=== PATIENT | male | born 1970 | race American Indian/Alaskan Native ===

== ENCOUNTER 2016-11-06 04:19 | Emergency (ER) | payer OTHER ==
[2016-11-06 04:27] VITALS: BMI 29.2
--- NOTE | 2016-11-06 04:48 | ED PDOC ---
Arrival/HPI - General Historian: Patient - History of Present Illness Time/Duration: Other (tonight) Symptom Onset: Gradual Symptom Course: Unchanged Activities at Onset: Rest, Light Context: Home - General Chief Complaint: Flu-like Symptoms Time Seen by Provider: 11/06/16 04:38 - History of Present Illness Narrative History of Present Illness (Text): 11/06/16 04:45 John Wheatley is a 46 year old female, whose past medical history includes hypertension, hyperlipidemia, WPW, chronic neck pain, anxiety, and insomnia, who presents to the Emergency department complaining of a migraine headache today. Patient also complaining of associated nausea, vomiting, diarrhea, chills , and generalized body aches. Patient notes decreased PO intake secondary to vomiting. Patient denies any fever, chest pain, shortness of breath, urinary symptoms, back pain, neck pain, focal neurological deficits, vision changes, dizziness, or any other complaints. Patient notes his granddaughter was ill with similar symptoms recently. (Eduardo Cosby) Past Medical History - Provider Review Nursing Documentation Reviewed: Yes - Infectious Disease Hx of Infectious Diseases: None - Tetanus Immunization Tetanus Immunization: Unknown - Past Medical History Past Medical History: No Previous - Cardiac Hx Hypertension: Yes - Pulmonary Hx Respiratory Disorders: Yes (SMOKES CIGARETTES 1/2 PPD) - Neurological Hx Neurological Disorder: Yes (NEUROPATHY) Hx Parkinson's Disease: Yes (RONIT PARKINSON WHITE SYNDROME) - HEENT Hx HEENT Disorder: No - Renal Hx Renal Disorder: No - Endocrine/Metabolic Hx Endocrine Disorders: No - Hematological/Oncological Hx Blood Disorders: No - Integumentary Hx Dermatological Disorder: No - Musculoskeletal/Rheumatological Hx Back Pain: Yes Other/Comment: shoulder pain - Gastrointestinal Hx Gastrointestinal Disorders: No - Genitourinary/Gynecological Hx Genitourinary Disorders: No - Psychiatric Hx Depression: No Hx Emotional Abuse: No Hx Physical Abuse: No Hx Substance Use: No - Past Surgical History Past Surgical History: Non-Contributing - Surgical History Other/Comment: coronary artery stents - Suicidal Assessment Feels Threatened In Home Enviroment: No Family/Social History - Physician Review Nursing Documentation Reviewed: Yes Family/Social History: No Known Family HX Smoking Status: Heavy Smoker > 10 Cigarettes Daily Hx Alcohol Use: No Hx Substance Use: No Hx Substance Use Treatment: Yes Allergies/Home Meds Allergies/Adverse Reactions: Allergies No Known Allergies Allergy (Verified 08/12/16 17:28) Home Medications: Home Meds Medication Instructions Recorded Confirmed ALPRAZolam [Xanax] 0.25 mg PO TID PRN 11/06/16 11/06/16 Aspirin [Ecotrin] 81 mg PO DAILY 11/06/16 11/06/16 Atorvastatin Calcium 40 mg PO DAILY 11/06/16 11/06/16 Ergocalciferol (Vitamin D2) 50,000 unit PO .2XWEEK 11/06/16 11/06/16 [Vitamin D2] Folic Acid 1 mg PO DAILY 11/06/16 11/06/16 Gabapentin [Neurontin] 300 mg PO TID 11/06/16 11/06/16 Losartan Potassium [Cozaar] 100 mg PO DAILY 11/06/16 11/06/16 Pantoprazole [Protonix] 40 mg PO DAILY 11/06/16 11/06/16 traMADol [Ultram] 50 mg PO TID PRN 11/06/16 11/06/16 traZODone [trazodone Hydrochloride] 100 mg PO HS 11/06/16 11/06/16 Review of Systems - Physician Review All systems were reviewed & negative as marked: Yes - Review of Systems Constitutional: Other (+chills). absent: Fevers Eyes: Normal ENT: Normal Respiratory: Normal. absent: SOB, Cough Cardiovascular: Normal. absent: Chest Pain Gastrointestinal: Diarrhea, Nausea, Vomiting. absent: Abdominal Pain Genitourinary Male: Normal. absent: Dysuria, Frequency, Hematuria, Urinary Output Changes Musculoskeletal: Myalgias (+generalized body aches). absent: Back Pain, Neck Pain Skin: Normal Neurological: Headache Endocrine: Normal Hemo/Lymphatic: Normal Psychiatric: Normal Physical Exam Vital Signs Reviewed: Yes Temperature: Afebrile Blood Pressure: Normal Pulse: Regular Respiratory Rate: Normal Appearance: Positive for: Well-Appearing, Non-Toxic, Comfortable Pain Distress: None Mental Status: Positive for: Alert and Oriented X 3 - Systems Exam Head: Present: Atraumatic, Normocephalic Pupils: Present: PERRL Extroacular Muscles: Present: EOMI Conjunctiva: Present: Normal Ears: Present: NORMAL TM Mouth: Present: Moist Mucous Membranes Pharnyx: Present: Normal Neck: Present: Normal Range of Motion. No: Meningeal Signs Respiratory/Chest: Present: Clear to Auscultation, Good Air Exchange. No: Respiratory Distress, Accessory Muscle Use Cardiovascular: Present: Regular Rate and Rhythm, Normal S1, S2. No: Murmurs Abdomen: Present: Normal Bowel Sounds. No: Tenderness, Distention, Peritoneal Signs Back: Present: Normal Inspection Upper Extremity: Present: Normal Inspection. No: Cyanosis, Edema Lower Extremity: Present: Normal Inspection. No: Edema Neurological: Present: GCS=15, CN II-XII Intact, Speech Normal, Motor Func Grossly Intact, Normal Sensory Function Skin: Present: Warm, Dry, Normal Color. No: Rashes Psychiatric: Present: Alert, Oriented x 3, Normal Insight, Normal Concentration Vital Signs Temp Pulse Resp BP Pulse Ox 11/06/16 09:38 63 18 141/84 98 11/06/16 07:40 98.7 F 67 16 158/99 H 98 11/06/16 06:04 62 17 135/72 98 11/06/16 04:48 98.9 F 68 17 146/91 H 100 Medical Decision Making ED Course and Treatment: 11/06/16 04:45 Impression: 46 year old male complaining of headache, nausea, vomiting, diarrhea, chills, and generalized body aches tonight. Plan: -- Labs, lipase -- Rapid influenza -- IV fluids -- Benadryl -- Reglan -- Reassess and disposition Prior Visits: Notes and results from previous visits were reviewed. Progress Notes: (Eduardo Cosby) - Lab Interpretations Lab Results: 11/06/16 05:15 11/06/16 05:15 Lab Results 11/06/16 05:15: WBC 9.0, RBC 3.99, Hgb 12.5 L, Hct 35.6 L, MCV 89.2, MCH 31.3, MCHC 35.1, RDW 13.6, Plt Count 193, MPV 11.3 H, Sodium 139, Potassium 3.6, Chloride 102, Carbon Dioxide 30, Anion Gap 11, BUN 10, Creatinine 1.1, Est GFR ( Amer) > 60, Est GFR (Non-Af Amer) > 60, Random Glucose 94, Calcium 8.7, Total Bilirubin 0.7, AST 48, ALT 47, Alkaline Phosphatase 83, Total Protein 7.1 , Albumin 3.9, Globulin 3.3, Albumin/Globulin Ratio 1.2, Lipase 37, Influenza Typ A,B (EIA) Negative for flu a/b - Medication Orders Current Medication Orders: Discontinued Medications Diphenhydramine HCl (Benadryl) 25 mg IVP ONCE ONE Stop: 11/06/16 04:53 Last Admin: 11/06/16 05:17 Dose: 25 MG IVP Administration Document 11/06/16 05:17 RD (Rec: 11/06/16 05:17 RD [id number]) Charges for Administration # of IVP Administrations 1 Sodium Chloride (Sodium Chloride 0.9%) 1,000 mls @ 999 mls/hr IV .Q1H1M STA Stop: 11/06/16 05:52 Last Admin: 11/06/16 05:17 Dose: 999 MLS/HR eMAR Start Stop Document 11/06/16 05:17 RD (Rec: 11/06/16 05:17 RD [id number]) Intravenous Solution Start Date 11/06/16 Start Time 05:17 End Date 11/06/16 End time 06:17 Total Infusion Time 60 Ketorolac Tromethamine (Toradol) 30 mg IVP ONCE ONE Stop: 11/06/16 07:16 Last Admin: 11/06/16 07:32 Dose: 30 MG IVP Administration Document 11/06/16 07:32 SS (Rec: 11/06/16 07:36 SS [id number]) Charges for Administration # of IVP Administrations 1 Metoclopramide HCl (Reglan) 10 mg IVP ONCE ONE Stop: 11/06/16 04:53 Last Admin: 11/06/16 05:17 Dose: 10 MG IVP Administration Document 11/06/16 05:17 RD (Rec: 11/06/16 05:17 RD [id number]) Charges for Administration # of IVP Administrations 1 ED OBSERVATION Date of observation admission: 11/06/16 Time of observation admission: 05:10 - Observation admission statement Patient is being placed in observation because:: migraine headache/generalized malaise (Eduardo Cosby) - Goals of Observation Goals of observation are:: treatment of headache/observe for response to treatment (Eduardo Cosby) - Progress Note Progress Note: 11/06/16 07:33 Patient signed out to me by . On evaluation patient is complaining of a headache. Toradol ordered by for headache. (Luis Manuel Stiles) 11/06/16 07:01 Case endorsed to .Awaiting response to treatment/reassess/final disposition (Eduardo Cosby) - Scribe Statement The provider has reviewed the documentation as recorded by the Scribe - Scribe Statement Lexy Bowen (Eduardo Cosby) Provider Attestation: All medical record entries made by the Scribe were at my direction and personally dictated by me. I have reviewed the chart and agree that the record accurately reflects my personal performance of the history, physical exam, medical decision making, and the department course for this patient. I have also personally directed, reviewed, and agree with the discharge instructions and disposition. (Eduardo Cosby) Disposition/Present on Arrival - Present on Arrival Any Indicators Present on Arrival: No History of DVT/PE: No History of Uncontrolled Diabetes: No Urinary Catheter: No History of Decub. Ulcer: No History Surgical Site Infection Following: None - Disposition Have Diagnosis and Disposition been Completed?: No Disposition Time: 07:00 - Disposition Diagnosis: Headache Disposition: HOME/ ROUTINE Condition: IMPROVED Discharge Instructions (ExitCare): Acute Headache (DC) Additional Instructions: Mr Wheatley, thank you for letting us take care of you today. Your provider was Dr. Stiles. You were treated for Headache. The emergency medical care you received today was directed at your acute symptoms. If you were prescribed any medication, please fill it and take as directed. It may take several days for your symptoms to resolve. Return to the Emergency Department if your symptoms worsen, do not improve, or if you have any other problems. Please contact your doctor or call one of the physicians/clinics you have been referred to that are listed on the Patient Visit Information form that is included in your discharge packet. Bring any paperwork you were given at discharge with you along with any medications you are taking to your follow up visit. Our treatment cannot replace ongoing medical care by a primary care provider (PCP) outside of the emergency department. Thank you for allowing the [facility] team to be part of your care today. If you had an X-Ray or CT scan: A Radiologist will review the ED reading if any change in treatment is needed we will contact you. If you had a blood, urine, or wound culture: It will take several days for the results, if any change in treatment is needed we will contact you. If you had an STI test: It will take 48 hours for the results. Please call after 1 week if you have not heard back. Prescriptions: guaiFENesin [guaifENESIN] 200 mg PO Q8 PRN #1 bottle PRN Reason: Cough Referrals: Raphael Smith MD [Primary Care Provider] - Follow up with primary Forms: WORK NOTE
[2016-11-06] MEDS ORDERED: DiphenhydrAMINE 50 mg/ml Inj IVP ONE (04:52)
[2016-11-06] MEDS ORDERED: Sodium Chloride 0.9% 1,000 ML IV STA (04:52)
[2016-11-06 05:28] LABS: HEMATOCRIT 35.6 % (42.0-52.0); MEAN CELL VOLUME 89.2 fL (80.0-105.0); MEAN CORPUSCULAR HEMOGLOBIN 31.3 pg (25.0-35.0); MEAN CORPUSCULAR HGB CONC 35.1 g/dl (31.0-37.0); MEAN PLATELET VOLUME 11.3 fl (7.0-11.0); RED CELL DISTRIBUTION WIDTH 13.6 % (11.5-14.5)
[2016-11-06 05:35] LABS: ALB/GLOB RATIO 1.2 (1.1-1.8); ALKALINE PHOSPHATASE 83 U/L (38-133); ALT/SGPT 47 U/L (7-56); AST/SGOT 48 U/L (15-59); BILIRUBIN,TOTAL 0.7 mg/dL (0.2-1.3); BLOOD UREA NITROGEN 10 mg/dL (7-21); CALCIUM 8.7 mg/dL (8.4-10.5); CARBON DIOXIDE 30 mmol/L (21-33); CHLORIDE 102 mmol/L (98-107); GFR AFRICAN-AMERICAN > 60; GLUCOSE,RANDOM 94 mg/dL (70-110); LIPASE 37 U/L (23-300); POTASSIUM 3.6 mmol/L (3.6-5.0); SODIUM 139 mmol/L (132-148); TOTAL PROTEIN 7.1 g/dL (5.8-8.3)
[2016-11-06 06:05] VITALS: O2SAT 98
[2016-11-06 07:41] VITALS: TEMP 98.7
[2016-11-06 09:39] VITALS: BP 141/84; PULSE 63; RESP 18
== END 2016-11-06 09:43 | disposition home or self-care (01) ==
LOC: ED 04:19
DX: R51 Headache (principal)
CPT/HCPCS: 80053; 83690; 85027; 87804; 96361; 96374; 96375; 99285; J1200; J1885; J2765; J7040

== ENCOUNTER 2017-01-23 11:28 | Emergency (ER) | payer OTHER ==
[2017-01-23 11:28] VITALS: BMI 29.2
[2017-01-23 11:47] VITALS: TEMP 98.1
[2017-01-23] MEDS ORDERED: Sodium Chloride 0.9% 1,000 ML IV STA (12:00)
[2017-01-23 12:06] VITALS: RESP 16; O2SAT 100
[2017-01-23 13:13] LABS: ADD MANUAL DIFF? NO
[2017-01-23 13:17] LABS: BASO # 0.02 K/mm3 (0.0-2.0); BASO % 0.3 % (0.0-3.0); EOS # 0.1 (0.0-0.7); EOS % 1.7 % (1.5-5.0); GRAN # 4.48 (1.4-6.5); GRAN % 62.2 % (50.0-68.0); HEMATOCRIT 35.9 % (42.0-52.0); LYMPH % 28.4 % (22.0-35.0); MEAN CELL VOLUME 87.1 fL (80.0-105.0); MEAN CORPUSCULAR HEMOGLOBIN 30.1 pg (25.0-35.0); MEAN CORPUSCULAR HGB CONC 34.5 g/dl (31.0-37.0); MEAN PLATELET VOLUME 10.8 fl (7.0-11.0); MONO # 0.5 (0.1-0.6); MONO % 7.4 % (1.0-6.0); PLATELET COUNT 224 10^3/uL (120.0-450.0); RED CELL DISTRIBUTION WIDTH 13.8 % (11.5-14.5); WHITE BLOOD COUNT 7.2 10^3/ul (4.5-11.0)
[2017-01-23 13:27] LABS: ALB/GLOB RATIO 1.4 (1.1-1.8); ALKALINE PHOSPHATASE 73 U/L (38-133); ALT/SGPT 40 U/L (7-56); AST/SGOT 39 U/L (15-59); BILIRUBIN,TOTAL 0.7 mg/dL (0.2-1.3); BLOOD UREA NITROGEN 16 mg/dL (7-21); CALCIUM 9.3 mg/dL (8.4-10.5); CARBON DIOXIDE 28 mmol/L (21-33); CHLORIDE 101 mmol/L (98-107); GFR AFRICAN-AMERICAN > 60; GLUCOSE,RANDOM 82 mg/dL (70-110); LIPASE 77 U/L (23-300); POTASSIUM 4.1 mmol/L (3.6-5.0); SODIUM 137 mmol/L (132-148); TOTAL PROTEIN 7.1 g/dL (5.8-8.3)
[2017-01-23 13:29] LABS: INR 1.11 (0.93-1.08); PARTIAL THROMBOPLASTIN TIME 27.9 Seconds (23.7-30.8)
--- NOTE | 2017-01-23 13:36 | ED PDOC ---
Arrival/HPI - General Chief Complaint: GI Problem Time Seen by Provider: 01/23/17 11:52 Historian: Patient - History of Present Illness Narrative History of Present Illness (Text): 01/23/17 13:29 46yo male with PMHx of hypertension, diabetes, hyperlipdemia, GERD, present with complaint nausea and vomiting x 2 since this morning. Reports blood tinged vomitus the second time. He notes history of alcohol intake. States the last time he drank was few days ago. Denies abdominal pain, diarrhea, constipation, fever, chills, chest pain, SOB, any other complaint. Past Medical History - Provider Review Nursing Documentation Reviewed: Yes - Infectious Disease Hx of Infectious Diseases: None - Tetanus Immunization Tetanus Immunization: Unknown - Past Medical History Past Medical History: No Previous - Cardiac Hx Cardiac Arrhythmia: Yes Hx Hypertension: Yes - Pulmonary Hx Respiratory Disorders: Yes (SMOKES CIGARETTES 1/2 PPD) - Neurological Hx Neurological Disorder: Yes (NEUROPATHY) - HEENT Hx HEENT Disorder: No - Renal Hx Renal Disorder: No - Endocrine/Metabolic Hx Endocrine Disorders: No - Hematological/Oncological Hx Blood Disorders: No - Integumentary Hx Dermatological Disorder: No - Musculoskeletal/Rheumatological Hx Back Pain: Yes Other/Comment: shoulder pain - Gastrointestinal Hx Gastrointestinal Disorders: No - Genitourinary/Gynecological Hx Genitourinary Disorders: No - Psychiatric Hx Anxiety: Yes Hx Depression: No Hx Emotional Abuse: No Hx Physical Abuse: No Hx Substance Use: No - Past Surgical History Past Surgical History: Non-Contributing - Surgical History Other/Comment: CARDIAC CATH - Anesthesia Hx Anesthesia: Yes - Suicidal Assessment Feels Threatened In Home Enviroment: No Family/Social History - Physician Review Nursing Documentation Reviewed: Yes Family/Social History: Unknown Family HX Smoking Status: Heavy Smoker > 10 Cigarettes Daily Hx Alcohol Use: No Hx Substance Use: No Hx Substance Use Treatment: Yes Allergies/Home Meds Allergies/Adverse Reactions: Allergies No Known Allergies Allergy (Verified 01/23/17 11:40) Home Medications: Home Meds Medication Instructions Recorded Confirmed ALPRAZolam [Xanax] 0.25 mg PO TID PRN 11/06/16 01/23/17 Aspirin [Ecotrin] 81 mg PO DAILY 11/06/16 01/23/17 Atorvastatin Calcium 40 mg PO DAILY 11/06/16 01/23/17 Ergocalciferol (Vitamin D2) 50,000 unit PO .2XWEEK 11/06/16 01/23/17 [Vitamin D2] Folic Acid 1 mg PO DAILY 11/06/16 01/23/17 Gabapentin [Neurontin] 300 mg PO TID 11/06/16 01/23/17 Losartan Potassium [Cozaar] 100 mg PO DAILY 11/06/16 01/23/17 Pantoprazole [Protonix] 40 mg PO DAILY 11/06/16 01/23/17 traMADol [Ultram] 50 mg PO TID PRN 11/06/16 01/23/17 traZODone [trazodone Hydrochloride] 100 mg PO HS 11/06/16 01/23/17 Review of Systems - Physician Review All systems were reviewed & negative as marked: Yes - Review of Systems Constitutional: Normal Eyes: Normal ENT: Normal Respiratory: Normal Cardiovascular: Normal Gastrointestinal: Nausea, Vomiting, Hematemesis. absent: Abdominal Pain, Constipation, Diarrhea, Hematochezia Genitourinary Male: Normal Musculoskeletal: Normal Skin: Normal Neurological: Normal Endocrine: Normal Hemo/Lymphatic: Normal Psychiatric: Normal Physical Exam Vital Signs Reviewed: Yes Vital Signs Temp Pulse Resp BP Pulse Ox 01/23/17 14:35 71 16 127/85 100 01/23/17 12:05 98.1 F 68 16 122/87 100 01/23/17 11:41 98.1 F 77 17 136/71 99 Temperature: Afebrile Blood Pressure: Normal Pulse: Regular Respiratory Rate: Normal Appearance: Positive for: Well-Appearing, Non-Toxic, Comfortable Pain Distress: None Mental Status: Positive for: Alert and Oriented X 3 - Systems Exam Head: Present: Atraumatic, Normocephalic Pupils: Present: PERRL Extroacular Muscles: Present: EOMI Conjunctiva: Present: Normal Mouth: Present: Moist Mucous Membranes Neck: Present: Normal Range of Motion Respiratory/Chest: Present: Clear to Auscultation, Good Air Exchange. No: Respiratory Distress, Accessory Muscle Use Cardiovascular: Present: Regular Rate and Rhythm, Normal S1, S2. No: Murmurs Abdomen: Present: Normal Bowel Sounds, Other (Soft). No: Tenderness, Distention , Peritoneal Signs, Rebound, Guarding, McBurney's Point Tender, Rovsing's Sign Present Back: Present: Normal Inspection Upper Extremity: Present: Normal Inspection. No: Cyanosis, Edema Lower Extremity: Present: Normal Inspection. No: Edema Neurological: Present: GCS=15, CN II-XII Intact, Speech Normal Skin: Present: Warm, Dry, Normal Color. No: Rashes Psychiatric: Present: Alert, Oriented x 3, Normal Insight, Normal Concentration Medical Decision Making ED Course and Treatment: 01/23/17 14:14 46yo male who presented for stated history. His abdominal exam was benign. Lab was unremarkable. PT have h/o GERD. Result was DW the pt. Case was also with pt' s PMD. Pt is noncompliant with his medications. He also don't see his PMD. He was strongly advised to f/u with his PMD. He states he plan to go to the PMD straight from the ED. Dr. Smith's office was notified that pt is on his way - Lab Interpretations Lab Results: 01/23/17 13:00 01/23/17 13:00 Lab Results 01/23/17 13:00: Sodium 137, Potassium 4.1, Chloride 101, Carbon Dioxide 28, Anion Gap 12, BUN 16, Creatinine 1.3, Est GFR ( Amer) > 60, Est GFR (Non- Af Amer) 59, Random Glucose 82, Calcium 9.3, Total Bilirubin 0.7, AST 39, ALT 40 , Alkaline Phosphatase 73, Total Protein 7.1, Albumin 4.2, Globulin 2.9, Albumin /Globulin Ratio 1.4, Lipase 77 01/23/17 13:00: PT 12.0 H, INR 1.11 H, APTT 27.9 01/23/17 13:00: WBC 7.2, RBC 4.12, Hgb 12.4 L, Hct 35.9 L, MCV 87.1, MCH 30.1, MCHC 34.5, RDW 13.8, Plt Count 224, MPV 10.8, Gran % 62.2, Lymph % (Auto) 28.4, Sutter % (Auto) 7.4 H, Eos % (Auto) 1.7, Baso % (Auto) 0.3, Gran # 4.48, Lymph # 2.0, Sutter # 0.5, Eos # 0.1, Baso # 0.02 - Medication Orders Current Medication Orders: Discontinued Medications Sodium Chloride (Sodium Chloride 0.9%) 1,000 mls @ 1,000 mls/hr IV .Q1H STA Stop: 01/23/17 12:59 Last Admin: 01/23/17 12:46 Dose: 1,000 mls/hr Ondansetron HCl (Zofran Inj) 4 mg IVP STAT STA Stop: 01/23/17 12:01 Last Admin: 01/23/17 12:39 Dose: 4 mg Pantoprazole Sodium (Protonix Inj) 40 mg IVP STAT STA Stop: 01/23/17 12:01 Last Admin: 01/23/17 12:39 Dose: 40 mg Disposition/Present on Arrival - Present on Arrival Any Indicators Present on Arrival: No History of DVT/PE: No History of Uncontrolled Diabetes: No Urinary Catheter: No History of Decub. Ulcer: No History Surgical Site Infection Following: None - Disposition Have Diagnosis and Disposition been Completed?: Yes Diagnosis: Vomiting Disposition: HOME/ ROUTINE Disposition Time: 13:55 Patient Plan: Discharge Condition: STABLE Discharge Instructions (ExitCare): Acute Nausea and Vomiting (ED) Additional Instructions: Follow up with your doctor/GI Return to ED for any new symptoms Referrals: Raphael Smith MD [Primary Care Provider] - Follow up with primary
[2017-01-23 14:36] VITALS: BP 127/85; PULSE 71
== END 2017-01-23 14:15 | disposition home or self-care (01) ==
LOC: ED 11:28
DX: R11.10 Vomiting, unspecified (principal); I10 Essential (primary) hypertension; E11.9 Type 2 diabetes mellitus without complications
CPT/HCPCS: 80053; 83690; 85025; 85610; 85730; 96361; 96374; 96375; 99283; C9113; J2405; J7040

== ENCOUNTER 2017-06-21 13:50 | Emergency (ER) | payer OTHER ==
[2017-06-21 13:58] VITALS: TEMP 97.5; BMI 27.1
--- NOTE | 2017-06-21 15:34 | RAD ---
PROCEDURE: Right Knee Radiographs. HISTORY: knee pain COMPARISON: None. FINDINGS: BONES: Normal. No fracture. JOINTS: Normal. No osteoarthritis. JOINT EFFUSION: None. Small OTHER FINDINGS: None. IMPRESSION: Small joint effusion. Otherwise unremarkable.
[2017-06-21] MEDS ORDERED: Oxycodone/Acetaminophen 5/325 mg Tab PO STA (16:26)
[2017-06-21 16:52] LABS: FLUID TYPE SYNOVIAL FLUID
--- NOTE | 2017-06-21 17:05 | ED PDOC ---
Arrival/HPI - General Chief Complaint: Lower Extremity Problem/Injury Time Seen by Provider: 06/21/17 14:05 Historian: Patient - History of Present Illness Narrative History of Present Illness (Text): 06/21/17 18:27 46 y/o male complains of right knee pain for one week. States pain is worse with flexion of the knee. Pain and swelling has gotten worse the past 4 days. States he went to his PCP today who sent him to the ER for joint aspiration. pt denies trauma, fall, fever, numbness or weakness of lower extremity. Denies hx of gout. States he's been taking Tramadol with no relief of pain. Past Medical History - Provider Review Nursing Documentation Reviewed: Yes - Travel History Have you recently traveled outside [place] w/in the past 3 mons?: No - Past History Past History: Non-Contributing - Infectious Disease Hx of Infectious Diseases: None - Tetanus Immunization Tetanus Immunization: Unknown - Reproductive Currently : No - Past Medical History Past Medical History: No Previous - Cardiac Hx Cardiac Arrhythmia: Yes Hx Hypertension: Yes Other/Comment: WPW - Pulmonary Hx Respiratory Disorders: Yes (SMOKES CIGARETTES 1/2 PPD) - Neurological Hx Neurological Disorder: Yes (NEUROPATHY) - HEENT Hx HEENT Disorder: No - Renal Hx Renal Disorder: No - Endocrine/Metabolic Hx Endocrine Disorders: No - Hematological/Oncological Hx Blood Disorders: No - Integumentary Hx Dermatological Disorder: No - Musculoskeletal/Rheumatological Hx Back Pain: Yes Other/Comment: shoulder pain - Gastrointestinal Hx Gastrointestinal Disorders: No - Genitourinary/Gynecological Hx Genitourinary Disorders: No - Psychiatric Hx Anxiety: Yes Hx Depression: No Hx Emotional Abuse: No Hx Physical Abuse: No Hx Substance Use: No - Past Surgical History Past Surgical History: Non-Contributing - Surgical History Other/Comment: CARDIAC CATH. WPW - Anesthesia Hx Anesthesia: Yes - Suicidal Assessment Feels Threatened In Home Enviroment: No Family/Social History - Physician Review Nursing Documentation Reviewed: Yes Family/Social History: Unknown Family HX Smoking Status: Heavy Smoker > 10 Cigarettes Daily Hx Alcohol Use: No Hx Substance Use: No Hx Substance Use Treatment: Yes Allergies/Home Meds Allergies/Adverse Reactions: Allergies No Known Allergies Allergy (Verified 06/21/17 13:58) Home Medications: Home Meds Medication Instructions Recorded Confirmed ALPRAZolam [Xanax] 0.25 mg PO TID PRN 11/06/16 06/21/17 Aspirin [Ecotrin] 81 mg PO DAILY 11/06/16 06/21/17 Atorvastatin Calcium 40 mg PO DAILY 11/06/16 06/21/17 Ergocalciferol (Vitamin D2) 50,000 unit PO .2XWEEK 11/06/16 06/21/17 [Vitamin D2] Folic Acid 1 mg PO DAILY 11/06/16 06/21/17 Gabapentin [Neurontin] 300 mg PO TID 11/06/16 06/21/17 Losartan Potassium [Cozaar] 100 mg PO DAILY 11/06/16 06/21/17 traMADol [Ultram] 50 mg PO TID PRN 11/06/16 06/21/17 traZODone [trazodone Hydrochloride] 100 mg PO HS 11/06/16 06/21/17 Review of Systems - Physician Review All systems were reviewed & negative as marked: Yes - Review of Systems Constitutional: absent: Fevers Musculoskeletal: Arthralgias (right knee pain) Skin: Normal Physical Exam Vital Signs Reviewed: Yes Vital Signs Temp Pulse Resp BP Pulse Ox 06/21/17 17:15 65 18 129/72 98 06/21/17 13:52 97.5 F L 60 16 132/77 96 Temperature: Afebrile Blood Pressure: Normal Pulse: Regular Respiratory Rate: Normal Appearance: Positive for: Well-Appearing, Non-Toxic Pain Distress: Mild Mental Status: Positive for: Alert and Oriented X 3 - Systems Exam Lower Extremity: Present: NORMAL PULSES, Tenderness, Swelling, Neurovascularly Intact, Other (limited flexion of right knee due to pain but able to flex and extend, positive balottement). No: CALF TENDERNESS, Erythema, Deformity Skin: Present: Warm, Dry, Normal Color. No: Rashes Psychiatric: Present: Alert, Oriented x 3 Medical Decision Making ED Course and Treatment: 06/21/17 18:31 XR of knee shows small effusion. Knee does not appear septic. Pt is able to flex and extend knee joint. No redness on the joint. Joint aspiration performed by Dr Echeverria after cleaning the site with chloraseptic and using lidocaine 1% for anesthesia. Straw colored fluid aspirated and sent to the lab for culture. Pt tolerated the procedure. Percocet given for pain. Joint culture results pending. Follow up with PCP advised. Reassessment Condition: Improved - Lab Interpretations Lab Results: Lab Results 06/21/17 16:45: Fluid Type Synovial fluid, Synovial WBC 2110.0 H, Synovial RBC 38719.0 H, Synovial Neutrophils 20.9 H, Synovial Lymphocytes 79.1 H, Synov Monos /Macrophage 0, Synovial Fluid Comment Knee - RAD Interpretation Radiology Orders: 06/21/17 14:32 KNEE W PATELLA RIGHT 3 VIEW [RAD] Stat - Medication Orders Current Medication Orders: Discontinued Medications Oxycodone/Acetaminophen (Percocet 5/325 Mg Tab) 1 tab PO STAT STA Stop: 06/21/17 16:27 Last Admin: 06/21/17 16:39 Dose: 1 tab MAR Pain Assessment Document 06/21/17 16:39 EQ (Rec: 06/21/17 16:39 EQ [id number]) Pain Reassessment Is this a pain reassessment? No Sleep Is patient sleeping during reassessment? No Presence of Pain Presence of Pain Yes Disposition/Present on Arrival - Present on Arrival Any Indicators Present on Arrival: No History of DVT/PE: No History of Uncontrolled Diabetes: No Urinary Catheter: No History of Decub. Ulcer: No History Surgical Site Infection Following: None - Disposition Have Diagnosis and Disposition been Completed?: Yes Diagnosis: Knee joint pain Disposition: HOME/ ROUTINE Disposition Time: 17:03 Patient Plan: Discharge Condition: STABLE Discharge Instructions (ExitCare): Knee Pain (ED) Print Language: ICELANDIC Additional Instructions: Take the medication as prescribed. Follow up with PCP in 2-3 days. Return to the ED if symptoms worsen or if unable to move knee. Prescriptions: oxyCODONE/Acetaminophen [Percocet 5/325 mg Tab] 1 ea PO TID PRN #9 tab PRN Reason: Pain, Severe (8-10) Referrals: Raphael Smith MD [Primary Care Provider] - Follow up with primary
[2017-06-21 17:23] VITALS: BP 129/72; PULSE 65; RESP 18; O2SAT 98
[2017-06-21 17:37] LABS: SYNOVIAL FLUID NEUTROPHIL 20.9 % (0-0)
[2017-06-21 17:38] LABS: SYNOVIAL FLUID LYMPHOCYTE 79.1 % (0-0)
[2017-06-21 17:39] LABS: SYNOVIAL FLUID TOTAL COUNT 100 (0-0)
[2017-06-24 20:10] LABS: LDH SYNOVIAL FLUID 136 IU/L
== END 2017-06-21 17:15 | disposition home or self-care (01) ==
LOC: ED 13:50
DX: M25.561 Pain in right knee (principal); I10 Essential (primary) hypertension; F17.210 Nicotine dependence, cigarettes, uncomplicated

== ENCOUNTER 2018-01-06 07:49 | Emergency (ER) | payer OTHER ==
[2018-01-06 07:50] VITALS: BMI 27.1
[2018-01-06 08:30] VITALS: TEMP 97.9; O2SAT 99
[2018-01-06] MEDS ORDERED: Oxycodone/Acetaminophen 5/325 mg Tab PO STA (08:40)
--- NOTE | 2018-01-06 08:43 | ED PDOC ---
Arrival/HPI - General Chief Complaint: Back Pain Time Seen by Provider: 01/06/18 08:32 Historian: Patient - History of Present Illness Narrative History of Present Illness (Text): 01/06/18 08:35 pt p/w + left mid/lower back pain x < 1 day; pt states he felt severe left mid- lower back pain while at work yesterday, lifting heavy crates/boxes of goods; pt felt a spasm/twinge and continue to work through it; when he woke up this morning, left back pain became severe and spastic; pt states pain does not radiate, no leg numbness/tingling, + walking with a limp; pt states no fever/ chills/sweats, no cp/sob/palpitations, no abd pain, no n/v, no urinary/bowel changes, no incontinence, no rectal/penile numbness/tingling; pt denied fall/ trauma/sick contact, no traveling engineer denied other complaints pt is here for further eval. PCP: Dr Smith pt with arthritic knees pt with chronic neck pain pt is right hand dominate Time/Duration: 24 hours Symptom Onset: Sudden Quality: Tightness, Stabbing, Cramping Severity Level: Severe Activities at Onset: Other (while lifting a heavy crate at work yesterday) Context: Work Past Medical History - Provider Review Nursing Documentation Reviewed: Yes - Travel History Have you recently traveled outside [place] w/in the past 3 mons?: No - Past History Past History: Non-Contributing - Infectious Disease Hx of Infectious Diseases: None - Tetanus Immunization Tetanus Immunization: Unknown - Past Medical History Past Medical History: No Previous - Cardiac Hx Cardiac Arrhythmia: Yes Hx Hypertension: Yes Other/Comment: WPW - Pulmonary Hx Respiratory Disorders: Yes (SMOKES CIGARETTES 1/2 PPD) - Neurological Hx Neurological Disorder: Yes (NEUROPATHY) - HEENT Hx HEENT Disorder: No - Renal Hx Renal Disorder: No - Endocrine/Metabolic Hx Endocrine Disorders: No - Hematological/Oncological Hx Blood Disorders: No - Integumentary Hx Dermatological Disorder: No - Musculoskeletal/Rheumatological Hx Back Pain: Yes Other/Comment: shoulder pain - Gastrointestinal Hx Gastrointestinal Disorders: No - Genitourinary/Gynecological Hx Genitourinary Disorders: No - Psychiatric Hx Anxiety: Yes Hx Depression: No Hx Emotional Abuse: No Hx Physical Abuse: No Hx Substance Use: No - Past Surgical History Past Surgical History: Non-Contributing - Surgical History Hx Orthopedic Surgery: Yes Other/Comment: CARDIAC CATH. WPW - Anesthesia Hx Anesthesia: Yes - Suicidal Assessment Feels Threatened In Home Enviroment: No Family/Social History - Physician Review Nursing Documentation Reviewed: Yes Family/Social History: No Known Family HX Smoking Status: Heavy Smoker > 10 Cigarettes Daily Hx Alcohol Use: No Hx Substance Use: No Hx Substance Use Treatment: Yes Allergies/Home Meds Allergies/Adverse Reactions: Allergies No Known Allergies Allergy (Verified 01/06/18 08:26) Home Medications: Home Meds Medication Instructions Recorded Confirmed ALPRAZolam [Xanax] 0.25 mg PO TID PRN 11/06/16 06/21/17 Aspirin [Ecotrin] 81 mg PO DAILY 11/06/16 06/21/17 Atorvastatin Calcium 40 mg PO DAILY 11/06/16 06/21/17 Ergocalciferol (Vitamin D2) 50,000 unit PO .2XWEEK 11/06/16 06/21/17 [Vitamin D2] Folic Acid 1 mg PO DAILY 11/06/16 06/21/17 Gabapentin [Neurontin] 300 mg PO TID 11/06/16 06/21/17 Losartan Potassium [Cozaar] 100 mg PO DAILY 11/06/16 06/21/17 traMADol [Ultram] 50 mg PO TID PRN 11/06/16 06/21/17 traZODone [trazodone Hydrochloride] 100 mg PO HS 11/06/16 06/21/17 Review of Systems - Review of Systems Constitutional: Normal Eyes: Normal ENT: Normal Respiratory: Normal. absent: SOB Cardiovascular: Normal. absent: Chest Pain Gastrointestinal: Normal. absent: Abdominal Pain, Nausea, Vomiting Genitourinary Male: Normal Musculoskeletal: Back Pain. absent: Neck Pain, Joint Swelling Skin: Normal Neurological: Normal Endocrine: Normal Hemo/Lymphatic: Normal Psychiatric: Normal Physical Exam - Physical Exam Narrative Physical Exam (Text): 01/06/18 0835 General: alert/awake, GCS = 15, oriented x 3, sitting on bed, uncomfortable, cooperative, interactive; mild distress due to pain Head: NC/AT EYE: PERRLA, EOMI, sclera anicteric, no nystagmus, no photophobia; visual field intact b/l Facial: WNL Oral: uvula/tongue are midline, no exudate/lesions, no drooling/stridor, no dysphonia; intact dentitions NECK: intact ROM, no midline tenderness, no nuchal rigidity, no meningeal signs ; no step off Chest: CTA b/l, no w/r/r; no tachypenia, no accessory muscle use noted Chest Wall: no crepitus, no lesions, no gross deformities, no focal tenderness Cardiac: +S1, +S2, no m/r/r, no tachycardia Abdominal: +BS, soft/nd/nt, well nourished patient; no masses/rebound/guarding/ rigidity; no bautista's sign, no mcburney's point tenderness Extremities: intact ROM, strength 5/5 grossly intact in all limbs, neurovasc intact b/l; + ambulatory but favoring left leg; reflex +2/2; no gross deformities BACK: no step off, no midline tenderness, NO crepitus, no gross deformities noted; Intact ROM; + left mid/lower paralumbar tenderness on exam SKIN: cap refill < 1 sec, no ulcerations, no petechiae, no rashes NEURO: CNII-XII WNL, no facial asymmetries, no slurr speech, oriented x 3 NIH stroke scale ~ 0 Psych: normal insight, normal affect; follows command with ease Vital Signs Reviewed: Yes Vital Signs Temp Pulse Resp Pulse Ox 01/06/18 08:27 97.9 F 66 17 99 Temperature: Afebrile Blood Pressure: Hypertensive Pulse: Regular Respiratory Rate: Normal Appearance: Positive for: Well-Appearing, Non-Toxic, Uncomfortable. No: Ill- Appearing, Unkept Pain Distress: Mild Mental Status: Positive for: Alert and Oriented X 3 - Systems Exam Head: Present: Atraumatic, Normocephalic Medical Decision Making ED Course and Treatment: 01/06/18 08:40 Impression: left mid-lower back pain; no trauma i have consider all the differential diagnosis regarding pt's chief medical complaints/clinical findings, including but are not limited to: lumbar strain A/P: lumbar strain - pain control - supportive care - observe/reevaluation 01/06/18 09:30 pt states if he moves a certain way the pain returns severely but felt some improvement after medications pt remained able to stand/walk vital signs: + elevated bp pt is made aware of his medical results pt is encouraged no heavy lifting, no prolonged standing/walking pt will f/u as directed pt will be discharged home Re-evaluation Time: 09:30 Reassessment Condition: Improving,but remains with symptoms - Medication Orders Current Medication Orders: Discontinued Medications Diazepam (Valium) 5 mg PO ONCE ONE Stop: 01/06/18 08:41 Last Admin: 01/06/18 09:00 Dose: 5 mg Ibuprofen (Motrin Tab) 600 mg PO STAT STA Stop: 01/06/18 08:41 Last Admin: 01/06/18 09:00 Dose: 600 mg Oxycodone/Acetaminophen (Percocet 5/325 Mg Tab) 1 tab PO STAT STA Stop: 01/06/18 08:41 Last Admin: 01/06/18 09:00 Dose: 1 tab MAR Pain Assessment Document 01/06/18 09:00 OLVIN (Rec: 01/06/18 09:00 OLVIN [id number]) Pain Reassessment Is this a pain reassessment? No Sleep Is patient sleeping during reassessment? No Presence of Pain Presence of Pain Yes Disposition/Present on Arrival - Present on Arrival Any Indicators Present on Arrival: No History of DVT/PE: No History of Uncontrolled Diabetes: No Urinary Catheter: No History of Decub. Ulcer: No History Surgical Site Infection Following: None - Disposition Have Diagnosis and Disposition been Completed?: Yes Diagnosis: Lumbar strain, Musculoskeletal back pain Disposition: HOME/ ROUTINE Disposition Time: 09:30 Patient Plan: Discharge Patient Problems: Current Active Problems Problem Status Onset Lumbar strain Acute Musculoskeletal back pain Acute Condition: STABLE Discharge Instructions (ExitCare): Low Back Pain in Adults, Lumbar Muscle Strain Print Language: SLOVENIAN Additional Instructions: Make sure to see your doctor in 1-2 days DRINK PLENTY OF FLUIDS take your medications as prescribed RETURN TO ED IF worse pain, cant breath, persistent vomiting, high fever >101- 102 for hours, altered behavior, slurr speech, facial changes, focal weakness ( arm/leg or both), unable to urinate, heavy/persistent bleeding, passing out, chest pain, or other medical emergencies pt is requesting GI doctor for possible future follow up (colonoscopy) Prescriptions: diaZEpam [Valium] 5 mg PO TID PRN #12 tab PRN Reason: Muscle Spasm Ibuprofen [Motrin] 600 mg PO TID PRN #30 tab PRN Reason: Pain, Mild (1-3) oxyCODONE/Acetaminophen [Percocet 5/325 mg Tab] 1 ea PO TID PRN #15 tab PRN Reason: Pain, Moderate (4-7) Referrals: Sarah Thomas MD [Staff Provider] - Follow up with primary Raphael Smith MD [Family Provider] - Follow up with primary Alexandro Dubose MD [Staff Provider] - Follow up with primary Forms: [employer] (Polish), WORK NOTE
[2018-01-06 09:53] VITALS: BP 129/86; PULSE 62; RESP 18
== END 2018-01-06 09:53 | disposition home or self-care (01) ==
LOC: ED 07:49
DX: S39.012A Strain of muscle, fascia and tendon of lower back, initial encounter (principal); X50.0XXA Overexertion from strenuous movement or load, initial encounter; Y92.89 Other specified places as the place of occurrence of the external cause; Y99.0 Civilian activity done for income or pay; M54.6 Pain in thoracic spine